=== PATIENT | female | born 1975 | race Two or more races ===

== ENCOUNTER 2018-07-07 21:44 | Emergency (ER) | payer MEDICAID ==
[~2018-07-07] VITALS: Ht 165.1 cm; Wt 74.8 kg
[2018-07-07 21:48] VITALS: BP 129/86
== END 2018-07-07 23:12 | disposition home or self-care (01) ==
LOC: ER 21:45
DX: J06.9 Acute upper respiratory infection, unspecified (principal); E03.9 Hypothyroidism, unspecified; Z98.890 Other specified postprocedural states; Z90.89 Acquired absence of other organs
CPT/HCPCS: 99283; A4606; Z7610

== ENCOUNTER 2019-12-12 13:41 | Emergency (ER) | payer MEDICAID ==
[~2019-12-12] VITALS: Ht 165.1 cm; Wt 76.7 kg
--- NOTE | 2019-12-12 13:50 | NUR ---
came in for head and neck pain s/p glf yesterday. denies KO. to ER bed 11, hooked to monitor, changed to hosp gown, warm blanket provided, patient aao x 4, breathing even and unlabored. awaiting MD patton.
--- NOTE | 2019-12-12 14:20 | NUR ---
Dr Aguila at bedside
--- NOTE | 2019-12-12 15:38 | NUR ---
Patient discharged to home in stable condition. Written and verbal after care instructions given. Patient verbalizes understanding of instruction.
[2019-12-12 15:46] VITALS: BP 129/79
--- NOTE | 2019-12-12 15:46 | NUR ---
Patient discharged to home in stable condition. Written and verbal after care instructions given. Patient verbalizes understanding of instruction.
== END 2019-12-12 15:38 | disposition home or self-care (01) ==
LOC: ER 14:28
DX: S06.0X0A Concussion without loss of consciousness, initial encounter (principal); M54.2 Cervicalgia; E03.9 Hypothyroidism, unspecified; Z90.49 Acquired absence of other specified parts of digestive tract; Z98.890 Other specified postprocedural states; Z90.89 Acquired absence of other organs; W18.39XA Other fall on same level, initial encounter; Y93.89 Activity, other specified; Y92.89 Other specified places as the place of occurrence of the external cause; Y99.8 Other external cause status
CPT/HCPCS: 70450-TC; 72125-TC

== ENCOUNTER → 2020-02-09 | Emergency (ER) | payer MEDICAID ==
[~2020-02-09] VITALS: Ht 157.5 cm; Wt 77.1 kg
[~2020-02-09] MED LIST: KETOROLAC TROMETHAMINE INJ 30 MG/ML VIAL ONE; KETOROLAC TROMETHAMINE INJ 60 MG/2 ML VIAL IM ONE; oxyCODONE/APAP (5/325 MG) 1 UDTAB TABLET ONE; oxyCODONE/APAP (5/325 MG) 1 UDTAB TABLET PO ONE
[2020-02-09 11:56] VITALS: BP 127/85
== END | disposition home or self-care (01) ==
LOC: ER 11:53
DX: S63.591A Other specified sprain of right wrist, initial encounter (principal); E03.9 Hypothyroidism, unspecified; Z98.890 Other specified postprocedural states; Z90.89 Acquired absence of other organs; W01.0XXA Fall on same level from slipping, tripping and stumbling without subsequent striking against object, initial encounter; Y93.01 Activity, walking, marching and hiking; Y92.89 Other specified places as the place of occurrence of the external cause; Y99.8 Other external cause status
CPT/HCPCS: 29125; 73100; 96372; 99283; J1885; L3763

== ENCOUNTER 2020-04-22 19:41 | Emergency (ER) | payer MEDICAID ==
[~2020-04-22] VITALS: Ht 162.6 cm; Wt 76.2 kg
--- NOTE | 2020-04-22 20:00 | NUR ---
presenting to the ER because of recurrent epigastric abdominal pain around 8 AM today, had similar symptoms previously from gallbladder attack, the pain is worse with food. She denies fever, chills, neck pain, chest pain, vomiting, dyspnea, diarrhea, constipation. LMP was March 16, 2020 PT WAS PLACED ON A MONITOR, VSS
--- NOTE | 2020-04-22 20:12 | NUR ---
us tech at bed side
[2020-04-22 20:29] LABS: BASOPHILS % (AUTO) 0.4 % (0.0-2.0); EOSINOPHILS % (AUTO) 0.6 % (0.0-6.0); HEMATOCRIT 42 % (33-45); HEMOGLOBIN 14.3 g/dL (11.5-14.8); LYMPHOCYTES % (AUTO) 11.6 % (20.0-44.0); MEAN CORPUSCULAR HGB CONC 34 g/dl (31.0-36.0); MEAN CORPUSCULAR VOLUME 95 fL (82-100); MONOCYTES # (AUTO) 0.4 /CMM (0.1-1.30); MONOCYTES % (AUTO) 4.6 % (2.0-12.0); NEUTROPHILS # (AUTO) 7.3 /CMM (1.8-8.9); NEUTROPHILS % (AUTO) 82.8 % (43.0-81.0); PLATELET COUNT (AUTO) 223 /CMM (150-450); RED BLOOD CELL COUNT(AUTO) 4.43 MIL/uL (4.0-5.2); WHITE BLOOD COUNT (AUTO) 8.8 K/uL (4.3-11.0)
[2020-04-22] MEDS ORDERED: MORPHINE SULFATE INJ 2 MG/ML DISP.SYRIN IV ONE (20:30)
[2020-04-22] MEDS ORDERED: ONDANSETRON HCL/PF - ER 4 MG/2 ML VIAL IV ONE (20:30)
[2020-04-22 20:31] LABS: APPEARANCE,URINE CLOUDY (CLEAR); BILIRUBIN,URINE NEGATIVE (NEGATIVE); BLOOD, URINE LARGE Ery/uL (NEGATIVE); COLOR,URINE YELLOW (YELLOW); KETONES,URINE NEGATIVE (NEGATIVE); LEUKOCYTE ESTERASE ,URINE NEGATIVE (NEGATIVE); NITRITE, URINE NEGATIVE (NEGATIVE); PH,URINE 8.5 (5.0-8.0); PROTEIN,URINE TRACE mg/dl (NEGATIVE); UGLUCOSE NEGATIVE (NEGATIVE)
[2020-04-22 20:44] LABS: BACTERIA,URINE None seen /HPF (None Seen); SQUAMOUS EPITHELIAL CELL,UR Moderate /HPF (None Seen); URINE AMORPHOUS PHOSPHATES Few /HPF (None Seen)
[2020-04-22 20:58] LABS: CALCIUM, SERUM 8.6 mg/dL (8.5-10.1); CREATININE 0.8 mg/dL (0.6-1.3); POTASSIUM 3.5 mmol/L (3.5-5.1)
[2020-04-22] MEDS ORDERED: ONDANSETRON HCL/PF 4 MG/2 ML VIAL ONE (21:02)
[2020-04-22] MEDS ORDERED: MORPHINE SULFATE INJ 2 MG/ML DISP.SYRIN ONE (21:03)
[2020-04-22 21:13] LABS: ALBUMIN 3.8 g/dL (3.4-5.0); BILIRUBIN,DIRECT 0.1 mg/dL (0.0-0.2); BILIRUBIN,TOTAL 0.7 mg/dL (0.2-1.0); TOTAL PROTEIN, SERUM 7.7 g/dL (6.4-8.2)
--- NOTE | 2020-04-22 21:46 | NUR ---
PT IS MEDICALLY STABLE FOR D/C . IV removed. Catheter intact and site benign. Pressure and 4x4 applied to site. No bleeding noted.Patient discharged to home in stable condition. Rx and Written and verbal after care instructions given. Patient verbalizes understanding of instruction.
[2020-04-22 21:54] VITALS: BP 121/74
== END 2020-04-22 21:55 | disposition home or self-care (01) ==
LOC: ER 19:43
DX: N23 Unspecified renal colic (principal); M54.5 Low back pain; E03.9 Hypothyroidism, unspecified; Z98.890 Other specified postprocedural states; Z90.89 Acquired absence of other organs; Z90.49 Acquired absence of other specified parts of digestive tract
CPT/HCPCS: 36415; 76705; 80048; 80076; 81001; 83690; 84702; 85025; 96374; 96375; 99284; J2270; J2405 ×2; 81000-TC

== ENCOUNTER 2020-12-04 07:00 | Emergency (ER) | payer MEDICAID ==
[~2020-12-04] VITALS: Ht 165.1 cm; Wt 73.9 kg
[2020-12-04 07:00] VITALS: BP 122/79
--- NOTE | 2020-12-04 07:06 | NUR ---
PT BIBS C/O R NECK PAIN STARTED ON AFTER GETING COVID VACCINE, HAS BEEN TAKING TYLENOL 1G WITH NO RELIEF, LAST TYLENOL TODAY 6AM, TO ER BED 2
[2020-12-04] MEDS ORDERED: CARI350T PO (07:26)
--- NOTE | 2020-12-04 07:44 | NUR ---
Patient discharged to home in stable condition. Written and verbal after care instructions given. Patient verbalizes understanding of instruction.
== END 2020-12-04 07:44 | disposition home or self-care (01) ==
LOC: ER 07:00
DX: S13.4XXA Sprain of ligaments of cervical spine, initial encounter (principal); E03.9 Hypothyroidism, unspecified; Z90.89 Acquired absence of other organs; Z98.890 Other specified postprocedural states; Z79.899 Other long term (current) drug therapy; X58.XXXA Exposure to other specified factors, initial encounter; Y93.89 Activity, other specified; Y92.89 Other specified places as the place of occurrence of the external cause; Y99.8 Other external cause status

== ENCOUNTER 2021-01-01 09:01 | Emergency (ER) | payer MEDICAID ==
[~2021-01-01] VITALS: Ht 165.1 cm; Wt 73.9 kg
[~2021-01-01 09:01] MED LIST changes: +CARI350T PO; -KETOROLAC TROMETHAMINE INJ 30 MG/ML VIAL ONE; -KETOROLAC TROMETHAMINE INJ 60 MG/2 ML VIAL IM ONE; -oxyCODONE/APAP (5/325 MG) 1 UDTAB TABLET ONE; -oxyCODONE/APAP (5/325 MG) 1 UDTAB TABLET PO ONE
--- NOTE | 2021-01-01 09:23 | NUR ---
45 years old female alert, oriented x4 walking to er c/o rash,itch, no acute distress noted.
[2021-01-01] MEDS ORDERED: DIPH25CA49 MC (09:39)
[2021-01-01] MEDS ORDERED: DIPH28.34 TP (09:39)
[2021-01-01 09:53] VITALS: BP 126/70
--- NOTE | 2021-01-01 09:55 | NUR ---
condition stable d/c home with instructions after care reviewed understood left er via self ambulatory with steady gait.
== END 2021-01-01 09:58 | disposition home or self-care (01) ==
LOC: ER 09:08
DX: S40.862A Insect bite (nonvenomous) of left upper arm, initial encounter (principal); L29.9 Pruritus, unspecified; E03.9 Hypothyroidism, unspecified; Z98.890 Other specified postprocedural states; Z90.89 Acquired absence of other organs; W57.XXXA Bitten or stung by nonvenomous insect and other nonvenomous arthropods, initial encounter; Y93.89 Activity, other specified; Y92.89 Other specified places as the place of occurrence of the external cause; Y99.8 Other external cause status

== ENCOUNTER 2021-03-13 11:33 | Emergency (ER) | payer MEDICAID ==
[~2021-03-13] VITALS: Ht 162.6 cm; Wt 74.8 kg
[~2021-03-13 11:33] MED LIST changes: +DIPH25CA49 MC; +DIPH28.34 TP
--- NOTE | 2021-03-13 11:36 | NUR ---
Note rileyrubi in EDM - 03/13/21 at 1209 by [email or web address] Patient emilie, from home, c/o right knee pain and swelling s/p slipped and fall 8/10 ps. Patient alert and oriented x4. No respiratory distress noted. Awaiting md patton
[2021-03-13] MEDS ORDERED: KETOROLAC TROMETHAMINE INJ 30 MG/ML VIAL IM ONE (12:00)
[2021-03-13] MEDS ORDERED: KETOROLAC TROMETHAMINE INJ 30 MG/ML VIAL ONE (12:04)
--- NOTE | 2021-03-13 12:30 | NUR ---
patient came in to the er c/o dizziness while at work, feeling fainted. On room air, breathing evenly and unlabored. Connected to the monitor and pulse ox. kept comfortable, will continue to monitor accordingly.
--- NOTE | 2021-03-13 12:36 | NUR ---
urine collected and sent to lab.
[2021-03-13 12:56] LABS: BASOPHILS % (AUTO) 0.4 % (0.0-2.0); EOSINOPHILS % (AUTO) 0.4 % (0.0-6.0); HEMATOCRIT 39 % (33-45); HEMOGLOBIN 13.5 g/dL (11.5-14.8); LYMPHOCYTES # (AUTO) 1.4 K/uL (0.8-4.8); LYMPHOCYTES % (AUTO) 26.7 % (20.0-44.0); MEAN CORPUSCULAR HGB CONC 34 g/dl (31.0-36.0); MEAN CORPUSCULAR VOLUME 96 fL (82-100); MONOCYTES # (AUTO) 0.4 K/uL (0.1-1.30); MONOCYTES % (AUTO) 7.4 % (2.0-12.0); NEUTROPHILS # (AUTO) 3.4 K/uL (1.8-8.9); NEUTROPHILS % (AUTO) 65.1 % (43.0-81.0); PLATELET COUNT (AUTO) 250 K/uL (150-450); RED BLOOD CELL COUNT(AUTO) 4.08 MIL/uL (4.0-5.2); WHITE BLOOD COUNT (AUTO) 5.2 K/uL (4.3-11.0)
[2021-03-13] MEDS ORDERED: IV NS 0.9% 1,000 ML IV ONE (13:00)
[2021-03-13 13:20] LABS: CALCIUM, SERUM 8.6 mg/dL (8.5-10.1); CARBON DIOXIDE 29 mmol/L (21-32); CHLORIDE 106 mmol/L (98-107); CREATININE 0.7 mg/dL (0.6-1.3); GLUCOSE 104 mg/dL (74-106); POTASSIUM 3.3 mmol/L (3.5-5.1); SODIUM SERUM 143 mmol/L (136-145); UREA NITROGEN, BLOOD 15 mg/dL (7-18)
[2021-03-13 13:26] LABS: ALANINE AMINOTRANSFERASE 19 U/L (12-78); ALBUMIN 3.7 g/dL (3.4-5.0); ALKALINE PHOSPHATASE 72 U/L (46-116); ASPARTATE AMINOTRANSFERASE 21 U/L (15-37); BILIRUBIN,DIRECT 0.1 mg/dL (0.0-0.2); BILIRUBIN,TOTAL 0.4 mg/dL (0.2-1.0); TOTAL PROTEIN, SERUM 7.5 g/dL (6.4-8.2)
[2021-03-13 13:34] LABS: BILIRUBIN,URINE Negative (NEGATIVE); COLOR,URINE YELLOW (YELLOW); LEUKOCYTE ESTERASE ,URINE Negative (NEGATIVE); NITRITE, URINE Negative (NEGATIVE); PH,URINE 6.5 (5.0-8.0); PROTEIN,URINE Negative (NEGATIVE); UGLUCOSE Negative (NEGATIVE); UROBILINOGEN,URINE 0.2 EU/dL (0.2)
[2021-03-13 13:41] LABS: BACTERIA,URINE Few /HPF (None Seen); RBC,URINE 21-50 /HPF (0-2); SQUAMOUS EPITHELIAL CELL,UR Few /HPF (None Seen); WBC,URINE NONE SEEN /HPF (0-3)
[2021-03-13] MEDS ORDERED: MECL-159 PO (13:52)
[2021-03-13] MEDS ORDERED: MECLIZINE HCL 25 MG TABLET ONE (13:57)
[2021-03-13] MEDS ORDERED: MECLIZINE HCL 25 MG TABLET PO ONE (14:00)
[2021-03-13 14:10] VITALS: BP 135/77
--- NOTE | 2021-03-13 14:11 | NUR ---
Patient discharged to home in stable condition. Written and verbal after care instructions given. Patient verbalizes understanding of instruction.IV removed. Catheter intact and site benign. Pressure and 4x4 applied to site. No bleeding noted.
== END 2021-03-13 14:11 | disposition home or self-care (01) ==
LOC: ER 11:36
DX: R42 Dizziness and giddiness (principal); E03.9 Hypothyroidism, unspecified; Z98.890 Other specified postprocedural states; Z79.899 Other long term (current) drug therapy
CPT/HCPCS: 36415; 70450; 71045; 80048; 80076; 81001; 84484; 84703; 85025; 93005; 96360; 99285; J1885; J7030; J8597